=== PATIENT | male | born 1995 | race Caucasian/White ===

== ENCOUNTER 2016-09-24 15:59 | Emergency (ER) | payer OTHER ==
[2016-09-24 16:10] VITALS: O2SAT 98
[2016-09-24 16:27] LABS: COLOR YELLOW; LEUKOCYTE ESTERASE,URINE NEGATIVE (NEGATIVE); NITRITE,URINE NEGATIVE (NEGATIVE)
[2016-09-24] MEDS ORDERED: METAXALONE 800 MG TAB PO ONE (17:54)
--- NOTE | 2016-09-24 17:56 | EDPHY ---
H & P Stated Complaint: [facility] sent for eval low back pain vs kidney stone;pain better w/movement Time Seen by Provider: 09/24/16 17:48 HPI/ROS: CHIEF COMPLAINT: Left lower back pain HISTORY OF PRESENT ILLNESS: Patient is a 20-year-old man who comes to the emergency department complaining of left lower back pain. He states that it began hurting about 3 days ago after a alliance party where he had been drinking heavily. He has pain with twisting or bending. He does not have any pain at rest. [facility] and referred here for rule out kidney stone. He has not had any hematuria. He has not had a fever. He has not had any radiation of the pain. No weakness numbness or paresthesias. No immuno compromising conditions or drug use. REVIEW OF SYSTEMS: Constitutional: denies: chills, fever, recent illness, recent injury EENTM: denies: blurred vision, double vision, nose congestion Respiratory: denies: cough, shortness of breath Cardiac: denies: chest pain, irregular heart rate, lightheadedness, palpitations Gastrointestinal/Abdominal: denies: abdominal pain, diarrhea, nausea, vomiting, blood streaked stools Genitourinary: denies: dysuria, frequency, hematuria, pain Musculoskeletal: See HPI Neurological: denies: headache, numbness, paresthesia, tingling, dizziness, weakness Hematologic/Lymphatic: denies: blood clots, easy bleeding, easy bruising Immunologic/allergic: denies: HIV/AIDS, transplant EXAM: GENERAL: Well-appearing, well-nourished and in no acute distress. HEAD: Atraumatic, normocephalic. EYES: Pupils equal round and reactive to light, extraocular movements intact, sclera anicteric, conjunctiva are normal. ENT: TMs normal, nares patent, oropharynx clear without exudates. Moist mucous membranes. NECK: Normal range of motion, supple without lymphadenopathy or JVD. LUNGS: Breath sounds clear to auscultation bilaterally and equal. No wheezes rales or rhonchi. HEART: Regular rate and rhythm without murmurs, rubs or gallops. ABDOMEN: Soft, nontender, normoactive bowel sounds. No guarding, no rebound. No masses appreciated. BACK: Left lumbar muscular pain, no tenderness, no bony or midline tenderness. Pain with twisting or bending. No pain at rest. EXTREMITIES: Normal range of motion, no pitting or edema. No clubbing or cyanosis. NEUROLOGICAL: Cranial nerves II through XII grossly intact. Normal speech, normal gait. 5/5 strength, normal movement in all extremities, normal sensation PSYCH: Normal mood, normal affect. SKIN: Warm, dry, normal turgor, no visible rashes or lesions. Source: Patient Exam Limitations: No limitations - Personal History Current Tetanus Diphtheria and Acellular Pertussis (TDAP): Yes - Medical/Surgical History Hx Asthma: No Hx Chronic Respiratory Disease: No Hx Diabetes: No Hx Cardiac Disease: No Hx Renal Disease: No Hx Cirrhosis: No Hx Alcoholism: No Hx HIV/AIDS: No Other PMH: neg per pt - Social History Smoking Status: Current some day smoker Alcohol Use: Sober Drug Use: None Constitutional: Initial Vital Signs Temperature (C) 36.6 C 09/24/16 16:05 Heart Rate 74 09/24/16 16:05 Respiratory Rate 18 09/24/16 16:05 Blood Pressure 105/62 09/24/16 16:05 O2 Sat (%) 98 09/24/16 16:05 O2 Delivery Mode Room Air Allergies/Adverse Reactions: No Known Allergies Allergy (Unverified 09/24/16 16:05) Home Medications: Medication Instructions Recorded Metaxalone [Skelaxin 800 mg (*)] 800 mg PO TID PRN #12 tab 09/24/16 Medical Decision Making ED Course/Re-evaluation: The patient has low back pain that appears clearly musculoskeletal. I will treat him Skelaxin and have him follow up in the next 2-3 days. The patient understands and agrees with this plan. I do not feel that imaging is indicated at this time. His urinalysis is reassuring. He is happy with this plan and declines further workup testing. Differential Diagnosis: Partial list of the Differential diagnosis considered include but were not limited to; kidney stone, urinary tract infection, low back strain and although unlikely based on the history and physical exam, I also considered tumor, abscess, radiculopathy, fracture. I discussed these differential diagnoses and the plan with the patient as well as the usual and expected course. The patient understands that the diagnosis is provisional and that in medicine we are not always correct and that further workup is often warranted. Usual and customary warnings were given. All of the patient's questions were answered. The patient was instructed to return to the emergency department should the symptoms at all worsen or return, otherwise to followup with the physician as we discussed. - Data Points Laboratory Results: 09/24/16 16:10 Urine Color YELLOW Urine Appearance CLEAR Urine pH 5.0 (5.0-7.5) Ur Specific [place] 1.028 (1.002-1.030) Urine Protein NEGATIVE (NEGATIVE) Urine Ketones NEGATIVE (NEGATIVE) Urine Blood NEGATIVE (NEGATIVE) Urine Nitrate NEGATIVE (NEGATIVE) Urine Bilirubin NEGATIVE (NEGATIVE) Urine Urobilinogen NEGATIVE EU EU (0.2-1.0) Ur Leukocyte Esterase NEGATIVE (NEGATIVE) Urine Glucose NEGATIVE (NEGATIVE) Departure - Departure Disposition: Home, Routine, Self-Care Clinical Impression: Low back pain Qualifiers: Chronicity: acute Back pain laterality: left Sciatica presence: without sciatica Qualified Code(s): M54.5 - Low back pain Condition: Fair Instructions: Low Back Strain (ED) Referrals: [facility],. [Clinic] - 2-3 days, call for appt. Prescriptions: Metaxalone [Skelaxin 800 mg (*)] 800 mg PO TID PRN #12 tab PRN Reason: Spasms
[2016-09-24 18:19] VITALS: BP 120/80; PULSE 70; RESP 14; TEMP 97.2
== END 2016-09-24 18:19 | disposition home or self-care (01) ==
DX: M54.5 Low back pain (principal); F17.200 Nicotine dependence, unspecified, uncomplicated